=== PATIENT | female | born 1970 | race Caucasian/White ===

== ENCOUNTER 2019-03-21 13:54 | Observation (INO) | payer SELFPAY ==
[2019-03-21] MEDS ORDERED: Nitroglycerin 0.4 MG TAB 1 EACH ONE (14:05)
[2019-03-21 15:11] LABS: ALT (SGPT) 20 U/L (8-55); AST (SGOT) 28 U/L (5-34); Albumin 4.2 g/dL (3.5-5.0); Alkaline Phosphatase 116 U/L (40-110); Anion Gap 15 mmol/L (10-20); BUN (Urea Nitrogen) 13 mg/dL (7.0-18.7); Bilirubin, Total 0.5 mg/dL (0.2-1.2); Calc. Creatinine Clearance 0 mL/min (70-130); Calcium 9.8 mg/dL (7.8-10.44); Carbon Dioxide 25 mmol/L (22-29); Chloride 102 mmol/L (98-107); Estimated GFR-MDRD 67; Globulin 3.7 g/dL (2.4-3.5); Glucose 133 mg/dL (70-105); Potassium 3.7 mmol/L (3.5-5.1); Protein, Total 7.9 g/dL (6.0-8.3); Sodium 138 mmol/L (136-145)
--- NOTE | 2019-03-21 15:18 | RAD ---
CHEST ONE VIEW: HISTORY: Chest pain. COMPARISON: None. FINDINGS: The lungs are mildly hypoinflated. There are bibasilar atelectatic changes. Mild dextroscoliosis of t he thoracolumbar junction. No acute osseous abnormality. IMPRESSION: 1. Lung hypoinflation. 2. Mild atelectasis. POS: TPC
[2019-03-21 15:29] LABS: #Eosinphils 0.1 thou/uL (0.0-0.7); #Lymphocytes 1.9 thou/uL (1.20-3.40); #Monocytes 0.9 thou/uL (0.11-0.59); #Neutrophils 7.5 thou/uL (1.40-6.50); %Basophils 0.1 % (0.0-1.0); %Eosinophils 0.6 % (0.0-10.0); %Lymphocytes 18.1 % (21.0-51.0); %Monocytes 9.1 % (0.0-10.0); %Neutrophils 72.1 % (42.0-75.0); Hemoglobin 14.3 g/dL (12.0-16.0); Mean Corpuscular HGB CONC 35.8 g/dL (32.0-36.0); Mean Corpuscular Hemoglobin 35.3 pg (27.0-31.0); Mean Corpuscular Volume 98.6 fL (78.0-98.0); Platelet Count 121 thou/uL (130-400); Red Blood Cell (RBC) Count 4.05 mill/uL (4.20-5.40); White Blood Cell (WBC) Count 10.3 thou/uL (4.8-10.8)
[2019-03-21] MEDS ORDERED: Ketorolac Tromethamine 30 MG/ML VIAL ONE (15:51)
[2019-03-21 17:43] LABS: Troponin I 0.031 ng/mL (< 0.028)
--- NOTE | 2019-03-21 18:46 | PDOC.FPRHP ---
- History of Present Illness Chief Complaint: Chest Pain R/O History of Present Illness: Pt is a 49 yo female with PMH significant for HTN, tobacco abuse ............. who presents with CP - History PMHx: PSHx: FHx: Social: - Vital signs BP: [] HR: [] RR: [] Tmax: [] Pox: []% on [] Wt: [] FMR H&P: Results - Labs Result Diagrams: 03/21/19 15:22 03/21/19 14:33 Lab results: WBC 10.3 thou/uL (4.8-10.8) 03/21/19 15:22 Hgb 14.3 g/dL (12.0-16.0) 03/21/19 15:22 Hct 39.9 % (36.0-47.0) 03/21/19 15:22 MCV 98.6 fL (78.0-98.0) H 03/21/19 15:22 Plt Count 121 thou/uL (130-400) L 03/21/19 15:22 Neutrophils % 72.1 % (42.0-75.0) 03/21/19 15:22 Sodium 138 mmol/L (136-145) 03/21/19 14:33 Potassium 3.7 mmol/L (3.5-5.1) 03/21/19 14:33 Chloride 102 mmol/L (98-107) 03/21/19 14:33 Carbon Dioxide 25 mmol/L (22-29) 03/21/19 14:33 BUN 13 mg/dL (7.0-18.7) 03/21/19 14:33 Creatinine 0.89 mg/dL (0.6-1.1) 03/21/19 14:33 Glucose 133 mg/dL (70-105) H 03/21/19 14:33 Calcium 9.8 mg/dL (7.8-10.44) 03/21/19 14:33 Total Bilirubin 0.5 mg/dL (0.2-1.2) 03/21/19 14:33 AST 28 U/L (5-34) 03/21/19 14:33 ALT 20 U/L (8-55) 03/21/19 14:33 Alkaline Phosphatase 116 U/L (40-110) H 03/21/19 14:33 Serum Total Protein 7.9 g/dL (6.0-8.3) 03/21/19 14:33 Albumin 4.2 g/dL (3.5-5.0) 03/21/19 14:33 FMR H&P: Upper Level - Plan Date/Time: 03/21/19 1845 I, [], have evaluated this patient and agree with findings/plan as outlined by employee communications intern resident. Pertinent changes/additions are listed here.
[2019-03-21 20:37] VITALS: BMI 32.4
[2019-03-21 21:19] LABS: Troponin I 0.039 ng/mL (< 0.028)
[2019-03-21] MEDS ORDERED: HYDROcodone/Acetaminophen 5/325 mg Tablet PO PRN ×2 (21:54)
[2019-03-21] MEDS ORDERED: Prazosin HCl 1 MG CAP PO SCH (22:30)
[2019-03-21] MEDS ORDERED: risperiDONE 3 MG TAB PO SCH (22:30)
[2019-03-21] MEDS ORDERED: Benztropine 1 MG TAB PO SCH (22:30)
[2019-03-21] MEDS ORDERED: Acetaminophen 325 MG TAB PO PRN (22:55)
[2019-03-21] MEDS ORDERED: Senokot S 8.6-50 MG TAB PO PRN (22:55)
[2019-03-21 23:32] LABS: Troponin I 0.038 ng/mL (< 0.028)
--- NOTE | 2019-03-22 01:38 | HP ---
PRIMARY CARE PHYSICIAN: None. CHIEF COMPLAINT: Chest pain. HISTORY OF PRESENT ILLNESS: The patient was evaluated in the emergency room today for evaluation of chest pain, which she reports started about 10 o'clock this morning. She reports that she has some mild rib-type pain when she wakes up in the morning and stretches. Reports that she feels kind of a pop and that she has a little bit of pain, but it always goes away. This morning, the pain was different, is still there, lasted all day, worse with a deep breath or movement and radiates up to her neck. She has a past medical history pertinent for hypertension, anxiety, depression, and smokes. She denies any past medical history of any cardiac disease, but does report she has a significant family history of cardiac disease in her family. She denies any fever, chills, any abdominal pain, nausea, vomiting, or diarrhea. She denies having any nausea or diaphoresis when the chest pain started. She reports that taking a deep breath makes the pain worse. She denies anything making it feel better. She denies any cough or upper respiratory symptoms. Initial troponin was undetectable. Subsequent three troponins have been in the indeterminate range of 0.031, 0.039, and then 0.038. Glucose up at 133, alkaline phos at 116. D-dimer was negative. Chest x-ray which was a portable showed lung hypoinflation and mild atelectasis, but no other acute findings. The patient will be admitted to the telemetry unit for further management. REVIEW OF SYSTEMS: The patient denies chills or fever. Does report chest pain that radiates up to her neck and jaw. Denies cough or shortness of breath. Reports that the pain is worse with a deep breath. Denies any abdominal pain, nausea, vomiting, diarrhea, or constipation. All systems are reviewed and are negative unless mentioned above or in the HPI. PAST MEDICAL HISTORY: Please see HPI. PAST SURGICAL HISTORY: Cholecystectomy. PSYCHIATRIC HISTORY: Includes anxiety and depression. SOCIAL HISTORY: Denies any alcohol use or drug use. Does smoke a pack of cigarettes. She has had one pack that lasts her about 2 weeks and she lives in a [facility]. KNOWN ALLERGIES: None. HOME MEDICATIONS: 1. Cogentin 1 mg p.o. b.i.d. 2. Hydrochlorothiazide 25 mg p.o. daily. 3. Lamotrigine 100 mg p.o. daily. 4. Omeprazole 20 mg p.o. daily. 5. Minipress 1 mg p.o. q.p.m. 6. Risperidone 3 mg p.o. at bedtime. 7. Effexor XR 37.5 p.o. daily. PHYSICAL EXAMINATION: VITAL SIGNS: Blood pressure 148/91, pulse is 85, respiratory rate is 16, temperature is 98.1, and pO2 saturations are 98% on room air. CONSTITUTIONAL: The patient is alert and oriented to person, place, and time. She is in no apparent distress. HEENT: Head is atraumatic and normocephalic. Eyes, pupils are equal, round, and reactive to light. Eyelids are normal to inspection. ENT, mouth exam is normal. Mucous membranes are moist. NECK: Normal range of motion. Trachea is midline. RESPIRATORY/CHEST: Chest expansion is equal. Breath sounds are clear. There is some mild tenderness to the left anterior wall. CARDIOVASCULAR: Regular rate and rhythm. Heart sounds are normal. ABDOMEN: Nontender. Bowel sounds are heard. BACK: Normal range of motion. No tenderness. EXTREMITIES: Upper extremity; normal range of motion, normal inspection, normal strength. Radial pulses are normal. Lower extremity, normal range of motion. Motor strength is normal. There is no edema noted. Pedal pulses are normal. NEUROLOGIC: The patient is oriented to person, place, and time. Speech is normal. SKIN: Warm, dry, normal in color. PSYCHIATRIC: The patient is oriented to person, place, and time. Has a normal affect. DIAGNOSTIC DATA: EKG in the emergency room shows normal sinus rhythm, beats per minute 79, has some flattened T-waves, otherwise normal. PLAN/ASSESSMENT: 1. Chest pain. The patient's symptoms are very consistent with costochondritis. However, the patient did have elevated troponins in the indeterminate range x3. The patient is a smoker with history of hypertension with a significant family history of cardiac disease, so we will obtain a stress test in a.m. We will also do lateral AP chest x-ray in a.m. to rule out any sort of rib dislocation. If her stress test is negative, it would be reasonable to discharge the patient with some NSAIDs. 2. History of hypertension. We will restart home medications. 3. We will get a fasting lipid and TSH level. 4. Gastrointestinal and deep venous thrombosis prophylaxis has been started. 5. Of note, the patient was seen in the [facility] one time before Thanksgiving. She reports that she needed to get her blood pressure medication refilled. The patient does not have plans to go back to the [facility] and she is currently without a PCP. 6. History of some anxiety and depression. We will restart home medications. 7. Hospital course dependent on clinical findings. Job ID: [id number]
[2019-03-22 05:36] LABS: #Eosinphils 0.1 thou/uL (0.0-0.7); #Monocytes 0.8 thou/uL (0.11-0.59); #Neutrophils 4.7 thou/uL (1.40-6.50); %Basophils 0.3 % (0.0-1.0); %Eosinophils 0.8 % (0.0-10.0); %Lymphocytes 26.2 % (21.0-51.0); %Monocytes 10.8 % (0.0-10.0); Hemoglobin 13.6 g/dL (12.0-16.0); Mean Corpuscular HGB CONC 34.1 g/dL (32.0-36.0); Mean Corpuscular Hemoglobin 33.9 pg (27.0-31.0); Mean Corpuscular Volume 99.4 fL (78.0-98.0); Mean Platelet Volume 9.1 fL (7.4-10.4); Platelet Count 131 thou/uL (130-400); RBC Distribution Width 10.9 % (11.5-14.5); Red Blood Cell (RBC) Count 4.02 mill/uL (4.20-5.40); White Blood Cell (WBC) Count 7.6 thou/uL (4.8-10.8)
[2019-03-22 05:50] LABS: ALT (SGPT) 23 U/L (8-55); AST (SGOT) 31 U/L (5-34); Albumin 3.7 g/dL (3.5-5.0); Alkaline Phosphatase 106 U/L (40-110); Anion Gap 13 mmol/L (10-20); BUN (Urea Nitrogen) 14 mg/dL (7.0-18.7); Bilirubin, Total 0.7 mg/dL (0.2-1.2); Calc. Creatinine Clearance 134 mL/min (70-130); Calcium 9.4 mg/dL (7.8-10.44); Carbon Dioxide 26 mmol/L (22-29); Cardiac Risk 3.4 (Less than 4.5); Chloride 103 mmol/L (98-107); Cholesterol 172 mg/dl (< 200 Desired); Estimated GFR-MDRD 74; Globulin 3.5 g/dL (2.4-3.5); Glucose 113 mg/dL (70-105); HDL Cholesterol 50 mg/dL (>60 Neg Risk); LDL Cholesterol, Calculated 108 mg/dL; Potassium 3.7 mmol/L (3.5-5.1); Protein, Total 7.2 g/dL (6.0-8.3); Sodium 138 mmol/L (136-145); Triglycerides 70 mg/dL (Less than 150)
--- NOTE | 2019-03-22 07:33 | RAD ---
EXAM: Chest 2 views: HISTORY: Chest pain COMPARISON: None. FINDINGS: There is a normal-sized cardiomediastinal silhouette. There is no evidence of consolidation, mass, or pleural effusion. The bones are unremarkable. IMPRESSION: No evidence of acute cardiopulmonary disease
[2019-03-22] MEDS ORDERED: lamoTRIgine 100 MG TAB PO SCH (09:00)
[2019-03-22] MEDS ORDERED: Benztropine 1 MG TAB PO SCH (09:00)
[2019-03-22] MEDS ORDERED: Enoxaparin Sodium 40 MG/0.4 ML SYRINGE SC SCH (09:00)
[2019-03-22] MEDS ORDERED: Hydrochlorothiazide 25 MG TAB PO SCH (09:00)
[2019-03-22] MEDS ORDERED: Venlafaxine XR 37.5 MG CAP PO SCH (09:00)
[2019-03-22] MEDS ORDERED: Regadenoson 0.4 MG/5 ML SYRINGE ONE (09:32)
--- NOTE | 2019-03-22 10:14 | NM ---
EXAM: Nuclear medicine cardiac perfusion examination with ejection fraction HISTORY: Chest pain TECHNIQUE: Stress images: 29.1 mCi of technetium 9M sestamibi; Lexiscan COMPARISON: None FINDINGS: Tomographic images: No fixed or reversible perfusion defects. Gated images: Normal wall motion and ejection fraction of 63%. EDV: 79 mL LHR: 0.3 IMPRESSION: No evidence of perfusion defects with stress
[2019-03-22 12:40] VITALS: BP 117/67; TEMP 97.6
[2019-03-22] MEDS ORDERED: risperiDONE 3 MG TAB PO SCH (21:00)
[2019-03-22] MEDS ORDERED: Prazosin HCl 1 MG CAP PO SCH (21:00)
== END 2019-03-22 13:49 | disposition home or self-care (01) ==
LOC: ERS 13:54 → 2SW 20:18
PROVIDERS: ADMIT Internal Medicine; ATTEND Internal Medicine
DX: R07.9 Chest pain, unspecified (principal); R79.89 Other specified abnormal findings of blood chemistry; I10 Essential (primary) hypertension; F41.9 Anxiety disorder, unspecified; F32.9 Major depressive disorder, single episode, unspecified; F17.210 Nicotine dependence, cigarettes, uncomplicated; Z82.49 Family history of ischemic heart disease and other diseases of the circulatory system; Z79.899 Other long term (current) drug therapy
CPT/HCPCS: 36415; 71045; 71046; 78452; 80053; 80061; 84443; 84484; 85025; 85379; 93005; 93017; 96374; A9500; G0378; J1885; J2785